=== PATIENT | male | born 1995 | race Caucasian/White ===

== ENCOUNTER 2017-08-24 08:52 | Emergency (ER) | payer OTHER ==
[~2017-08-24] VITALS: Ht 172.7 cm; Wt 64.0 kg
[2017-08-24 09:07] VITALS: BP 120/66; PULSE 67; RESP 20; TEMP 97.9; O2SAT 98
[2017-08-24 09:52] LABS: AUTOMATED NEUTROPHIL # 4.9 TH/MM3 (1.8-7.7); BASOPHIL # 0.1 TH/MM3 (0-0.2); EOSINOPHIL # 0.4 TH/MM3 (0-0.4); EOSINOPHIL % 5.6 % (0.0-4.0); HEMATOCRIT 43.1 % (39.0-51.0); HEMOGLOBIN 14.4 GM/DL (13.0-17.0); LYMPHOCYTE # 0.6 TH/MM3 (1.0-4.8); MEAN CELL VOLUME 86.5 FL (80.0-100.0); MEAN CORPUSCULAR HEMOGLOBIN 28.9 PG (27.0-34.0); MEAN CORPUSCULAR HGB CONC 33.4 % (32.0-36.0); MEAN PLATELET VOLUME 7.3 FL (7.0-11.0); MONO % 7.5 % (0.0-8.0); MONOCYTE # 0.5 TH/MM3 (0-0.9); NEUT % 76.9 % (16.0-70.0); PLATELET COUNT 346 TH/MM3 (150-450); RED BLOOD COUNT 4.98 MIL/MM3 (4.50-5.90); RED CELL DISTRIBUTION WIDTH 13.3 % (11.6-17.2); WHITE BLOOD COUNT 6.4 TH/MM3 (4.0-11.0)
[2017-08-24] MEDS ORDERED: ONDANSETRON ODT 4 MG TAB PO ONE (10:45)
--- NOTE | 2017-08-24 10:54 | PD ---
HPI Chief Complaint: Suicide Ideation/Attempt Time Seen by Provider: 09:10 Travel History International Travel<30 days: No Contact w/Intl Traveler<30days: No Traveled to known affect area: No History of Present Illness HPI 22-year-old male presents to the emergency department under Jones act. According to law enforcement report "Rommel stated he was 2 days sober from heroin. He thought about jumping in front of cars and did so at approximately 6 AM. His dad been advised him to call us." The patient admits to jumping in front of a car. He says he is ready to end it all. He reports suicidal ideation and history of suicidal ideation. Reports history of suicidal attempts. His plan is to continue to jump in front of cars. Denies homicidal ideations. Denies auditory or visual hallucinations. Reports injecting heroin 2 days ago. Denies other illicit drug use. Denies alcohol use. Reports tobacco use. Current symptoms are aggravated by "multiple things." No known relieving factors. Symptoms are moderate to severe in severity. Is complaining of withdrawal symptoms of nausea without vomiting and abdominal cramping. Denies chest pain, shortness of breath, fevers. No primary care provider. No known allergies. Denies significant past medical history. History of bipolar, PTSD, anxiety and does not take medications. Has no other medical complaints. No other modifying factors or associated signs and symptoms. PFSH Past Medical History Bipolar Disorder: Yes Depression: Yes Diminished Hearing: No Psychiatric: Yes Tetanus Vaccination: Unknown Past Surgical History Surgical History: No Previous Surgery Social History Alcohol Use: Yes Tobacco Use: Yes (/2 PPD) Substance Use: Yes (HEROIN IV 2 DAYS AGO) Allergies-Medications (Allergen,Severity, Reaction): Coded Allergies: No Known Allergies (Unverified , 08/24/17) Reported Meds & Prescriptions Reported Meds & Active Scripts Active No Active Prescriptions or Reported Medications Review of Systems Except as stated in HPI: all other systems reviewed are Neg Physical Exam Narrative GENERAL: Well-nourished, well-developed male patient, in no acute distress SKIN: Warm and dry. HEAD: Atraumatic. Normocephalic. EYES: Pupils equal and round. ENT: Mucosa pink and moist. NECK: Supple. Trachea midline. CARDIOVASCULAR: Regular rate and rhythm. No murmur appreciated. RESPIRATORY: No accessory muscle use. Clear to auscultation. Breath sounds equal bilaterally. GASTROINTESTINAL: Abdomen soft, tender all over, nondistended. Hepatic and splenic margins not palpable. Bowel sounds are active 4 quadrants. MUSCULOSKELETAL: No obvious deformities. No clubbing. No cyanosis. No edema. NEUROLOGICAL: Awake and alert. Oriented 3. No obvious cranial nerve deficits. Motor grossly within normal limits. Normal speech. Moves all extremities. 5/5 strength to all extremities. PSYCHIATRIC: No delusional thought processes. No hallucinations. Data Data Last Documented VS Vital Signs Date Time Temp Pulse Resp B/P (MAP) Pulse Ox O2 Delivery O2 Flow Rate FiO2 08/24/17 09:07 97.9 67 20 120/66 (84) 98 Orders Orders Complete Blood Count With Diff (08/24/17 09:10) Comprehensive Metabolic Panel (08/24/17 09:10) Thyroid Stimulating Hormone (08/24/17 09:10) Psych Screen (08/24/17 09:10) Drug Screen, Random Urine (08/24/17 09:10) Alcohol (Ethanol) (08/24/17 09:10) Salicylates (Aspirin) (08/24/17 09:10) Tylenol (Acetaminophen) (08/24/17 09:10) Ondansetron Odt (Zofran Odt) (08/24/17 10:45) Clonidine (Catapres) (08/24/17 11:00) Labs Laboratory Tests Test 08/24/17 09:30 White Blood Count 6.4 TH/MM3 Red Blood Count 4.98 MIL/MM3 Hemoglobin 14.4 GM/DL Hematocrit 43.1 % Mean Corpuscular Volume 86.5 FL Mean Corpuscular Hemoglobin 28.9 PG Mean Corpuscular Hemoglobin Concent 33.4 % Red Cell Distribution Width 13.3 % Platelet Count 346 TH/MM3 Mean Platelet Volume 7.3 FL Neutrophils (%) (Auto) 76.9 % Lymphocytes (%) (Auto) 9.0 % Monocytes (%) (Auto) 7.5 % Eosinophils (%) (Auto) 5.6 % Basophils (%) (Auto) 1.0 % Neutrophils # (Auto) 4.9 TH/MM3 Lymphocytes # (Auto) 0.6 TH/MM3 Monocytes # (Auto) 0.5 TH/MM3 Eosinophils # (Auto) 0.4 TH/MM3 Basophils # (Auto) 0.1 TH/MM3 CBC Comment DIFF FINAL Differential Comment Blood Urea Nitrogen 10 MG/DL Creatinine 0.75 MG/DL Random Glucose 90 MG/DL Total Protein 7.4 GM/DL Albumin 3.5 GM/DL Calcium Level 8.8 MG/DL Alkaline Phosphatase 90 U/L Aspartate Amino Transf (AST/SGOT) 25 U/L Alanine Aminotransferase (ALT/SGPT) 34 U/L Total Bilirubin 0.5 MG/DL Sodium Level 136 MEQ/L Potassium Level 3.9 MEQ/L Chloride Level 104 MEQ/L Carbon Dioxide Level 24.7 MEQ/L Anion Gap 7 MEQ/L Estimat Glomerular Filtration Rate 129 ML/MIN Thyroid Stimulating Hormone 3rd Gen 0.257 uIU/ML Salicylates Level 2.6 MG/DL Acetaminophen Level LESS THAN 2.0 MCG/ML Ethyl Alcohol Level LESS THAN 3 MG/DL MDM Medical Decision Making Medical Screen Exam Complete: Yes Emergency Medical Condition: Yes Medical Record Reviewed: Yes Differential Diagnosis Opiate abuse, suicidal ideation, suicidal threat, suicidal attempt, opioid withdrawal, medical clearance for psychiatric admission Narrative Course Patient presents under a Jones act. Physical examination and vital signs are essentially unremarkable. Patient has no medical complaints to report. Psych screen has been ordered. If the laboratory results are unremarkable, the patient will be medically cleared for psychiatric evaluation and disposition. Patient reports symptoms of withdrawal. Patient reports nausea and abdominal cramping. Zofran ordered. I discussed the patient with Dr. Pardo, my attending physician and she recommends clonidine 0.1 mg. Clonidine ordered. Blood pressure will be monitored. Diagnosis Primary Impression: Medical clearance for psychiatric admission Additional Impression: Opioid withdrawal Scripts No Active Prescriptions or Reported Meds Condition: Stable Theresa Walls [facility] Aug 24, 2017 10:54
[2017-08-24 11:00] LABS: ALBUMIN 3.5 GM/DL (3.4-5.0); ALKALINE PHOSPHATASE 90 U/L (45-117); ALT (GPT) 34 U/L (12-78); AST (GOT) 25 U/L (15-37); BICARBONATE 24.7 MEQ/L (21.0-32.0); BLOOD UREA NITROGEN 10 MG/DL (7-18); CALCIUM 8.8 MG/DL (8.5-10.1); CHLORIDE 104 MEQ/L (98-107); CREATININE 0.75 MG/DL (0.60-1.30); GLOMERULAR FILTRATION RATE 129 ML/MIN (>89); GLUCOSE,RANDOM 90 MG/DL (74-106); SODIUM (NA) 136 MEQ/L (136-145); TOTAL BILIRUBIN ADULT 0.5 MG/DL (0.2-1.0); TOTAL PROTEIN 7.4 GM/DL (6.4-8.2)
[2017-08-24] MEDS ORDERED: cloNIDine HCL 0.1 MG TAB PO ONE (11:00)
[2017-08-24 11:01] LABS: ACETAMINOPHEN LESS THAN 2.0 MCG/ML (10.0-30.0)
[2017-08-24 12:06] VITALS: BP 110/68; PULSE 68; RESP 17; O2SAT 98
[2017-08-24 17:00] VITALS: BP 108/67
[2017-08-24 18:05] VITALS: BP 111/54; PULSE 74; RESP 20; TEMP 99; O2SAT 99
[2017-08-24] MEDS ORDERED: SERO50TA PO (21:02)
[2017-08-24] MEDS ORDERED: SERO100T PO (21:02)
[2017-08-24] MEDS ORDERED: QUEtiapine FUMARATE 100 MG TAB PO ONE (21:45)
[2017-08-24 21:46] VITALS: BP 109/55; PULSE 74; RESP 18; TEMP 98.4; O2SAT 98
[2017-08-25 02:15] VITALS: BP 119/58; PULSE 84; RESP 17; TEMP 99.2; O2SAT 97
[2017-08-25 06:35] VITALS: BP 95/51; PULSE 66; RESP 18; TEMP 99.2; O2SAT 99
--- NOTE | 2017-08-25 10:30 | PD ---
Data Data Last Documented VS Vital Signs Date Time Temp Pulse Resp B/P (MAP) Pulse Ox O2 Delivery O2 Flow Rate FiO2 08/25/17 10:36 08/25/17 06:35 99.2 66 18 99 Room Air Orders Orders Complete Blood Count With Diff (08/24/17 09:10) Comprehensive Metabolic Panel (08/24/17 09:10) Thyroid Stimulating Hormone (08/24/17 09:10) Psych Screen (08/24/17 09:10) Drug Screen, Random Urine (08/24/17 09:10) Alcohol (Ethanol) (08/24/17 09:10) Salicylates (Aspirin) (08/24/17 09:10) Tylenol (Acetaminophen) (08/24/17 09:10) Ondansetron Odt (Zofran Odt) (08/24/17 10:45) Clonidine (Catapres) (08/24/17 11:00) Diet Regular Basic (08/24/17 Dinner) Quetiapine (Seroquel) (08/24/17 21:45) Diet Regular Basic (08/25/17 Breakfast) Ed Discharge Order (08/25/17 10:30) Labs Laboratory Tests Test 08/24/17 09:30 08/24/17 12:40 White Blood Count 6.4 TH/MM3 Red Blood Count 4.98 MIL/MM3 Hemoglobin 14.4 GM/DL Hematocrit 43.1 % Mean Corpuscular Volume 86.5 FL Mean Corpuscular Hemoglobin 28.9 PG Mean Corpuscular Hemoglobin Concent 33.4 % Red Cell Distribution Width 13.3 % Platelet Count 346 TH/MM3 Mean Platelet Volume 7.3 FL Neutrophils (%) (Auto) 76.9 % Lymphocytes (%) (Auto) 9.0 % Monocytes (%) (Auto) 7.5 % Eosinophils (%) (Auto) 5.6 % Basophils (%) (Auto) 1.0 % Neutrophils # (Auto) 4.9 TH/MM3 Lymphocytes # (Auto) 0.6 TH/MM3 Monocytes # (Auto) 0.5 TH/MM3 Eosinophils # (Auto) 0.4 TH/MM3 Basophils # (Auto) 0.1 TH/MM3 CBC Comment DIFF FINAL Differential Comment Blood Urea Nitrogen 10 MG/DL Creatinine 0.75 MG/DL Random Glucose 90 MG/DL Total Protein 7.4 GM/DL Albumin 3.5 GM/DL Calcium Level 8.8 MG/DL Alkaline Phosphatase 90 U/L Aspartate Amino Transf (AST/SGOT) 25 U/L Alanine Aminotransferase (ALT/SGPT) 34 U/L Total Bilirubin 0.5 MG/DL Sodium Level 136 MEQ/L Potassium Level 3.9 MEQ/L Chloride Level 104 MEQ/L Carbon Dioxide Level 24.7 MEQ/L Anion Gap 7 MEQ/L Estimat Glomerular Filtration Rate 129 ML/MIN Thyroid Stimulating Hormone 3rd Gen 0.257 uIU/ML Salicylates Level 2.6 MG/DL Acetaminophen Level LESS THAN 2.0 MCG/ML Ethyl Alcohol Level LESS THAN 3 MG/DL Urine Opiates Screen POS Urine Barbiturates Screen NEG Urine Amphetamines Screen NEG Urine Benzodiazepines Screen NEG Urine Cocaine Screen NEG Urine Cannabinoids Screen NEG MDM Supervised Visit with SANDY: Yes Narrative Course Patient seen and examined by me after was seen by Debby PETERSON for the psychiatric team, she believes that the patient is not a threat to himself or to others. On my examination the patient states "I have to be honest with you my father told me that when I got down here I could always make of some story about being suicidal slight have a place to stay." Patient adamantly denies any suicidal homicidal ideation, he states he just came to the area from [place] because he wants to get sober, he states he has made some arrangements in a alf house that he wants to go stay in. He is future oriented I do not perceive him to be a threat to himself or others at this time , is calm and cooperative and has no medical complaints. He is stable for discharge. I have lifted his Jones act as he is an appropriate for this status at this time. Referred to [facility] outpatient. He is stable for discharge Diagnosis Primary Impression: Substance abuse Referrals: [facility] Disposition: 01 DISCHARGE HOME Condition: Stable Philip Fontenot MD Aug 25, 2017 10:30
--- NOTE | 2017-08-25 10:33 | PD ---
History of Present Illness Chief Complaint: Other psychoactive substance dependence, uncomplicated Travel History International Travel<30 Days: No Contact w/Intl Traveler<30days: No Known affected area: No Legal Status Legal Status: Jones Act Jones Act Signed By: Juanito Rojas History of Present Illness: This is a 22-year-old single, male who presents under Jones act from [employer] for self-reported suicidal ideations. Per the Jones act, patient complained that he had jumped in front of a car at approximately 6 AM. Reviewed electronic medical records, labs, discuss case with staff. Patient's toxicology screen is positive for opiates which correlates with patient's story that he used heroin 2 days ago. Patient was examined in his room and J pod. He is alert and oriented 4. His speech is clear, logical, and organized. There is no evidence of internal stimulation. He is neatly groomed and clean. His mood is good and his affect is euthymic. He advises he currently has been "staying with different people". He interacts appropriately throughout the evaluation. Patient reports that he "told the lead architect something just to get a bed ". He relates that he "made the whole story up". Patient advises that he had been living in a sober living home and was recently kicked out due to his drug use. He reports a long history of being in and out of detoxes on sober living facilities. He denies suicidal ideation, homicidal ideation, visual or auditory hallucinations. I can elicit no delusional material at this time. He denies ever having previous suicidal attempts. Reports that he had inpatient stays at mental health facilities when he was much younger. But states, "drugs are my problem". He relates that he has had numerous inpatient admissions to detox facilities. PFSH Past Medical History Bipolar Disorder: Yes Depression: Yes Diminished Hearing: No Psychiatric: Yes Tetanus Vaccination: Unknown Past Surgical History Surgical History: No Previous Surgery Psychiatric History Psychiatric History Patient reports mental health inpatient admissions at a young age but relates that they were mostly due to drug problems. He does report numerous inpatient admissions for detox and rehab. Hx Psychiatric Treatment: REPORTS HX OF PTSD FROM CHILDHOOD ABUSE. BIPOLAR. LAST ADMISSION WAS TO [facility] 1 YR AGO History of Inpatient Treatment: Yes Social History Hx Alcohol Use: Yes Hx Tobacco Use: Yes (05/27 PPD) Hx Substance Use: Yes Substance Use Type: Heroin Hx of Substance Use Treatment: Yes Family Psychiatric History Patient states that he no longer maintains contact with his father. He states that they "used to do drugs together". Allergies-Medications (Allergen,Severity, Reaction): Coded Allergies: No Known Allergies (Unverified , 08/24/17) Reported Meds & Prescriptions Reported Meds & Active Scripts Active Reported Seroquel (Quetiapine Fumarate) 100 Mg Tab 100 Mg PO HS Seroquel (Quetiapine Fumarate) 50 Mg Tab 50 Mg PO DAILY Mental Status Examination Appearance: Appropriate, Well dressed/well groomed Consciousness: Alert Orientation: x4 Motor Activity: Normal gait Speech: Unremarkable Language: Adequate Fund of Knowledge: Adequate Attention and Concentration: Adequate Memory: Unremarkable Mood: Appropriate, Good Affect: Appropriate, Euthymic Thought Process & Associations: Intact, Logical Thought Content: Appropriate Hallucination Type: None Delusion Type: None Suicidal Ideation: No Suicidal Plan: No Suicidal Intention: No Homicidal Ideation: No Homicidal Plan: No Homicidal Intention: No Insight: Fair Judgment: Impulsive MDM Medical Decision Making Medical Record Reviewed: Yes Assessment/Plan This is a 22-year-old single, male who presents under Jones act for self-reported attempted suicide. Upon evaluation this morning patient is awake , alert, and oriented 4. His speech is clear, logical, and organized. There is no evidence of internal stimulation and I can elicit no delusional material. He denies feeling suicidal, homicidal, or experiencing visual or auditory hallucinations. He reports that he "said something stupid so that I could get a bad". He relays that 2 days ago he used heroin and was kicked out of his sober living house. Patient is future oriented discussing which detox facilities he will attempt to get back into. He no longer meets Jones act criteria nor does he meet inpatient admission criteria. I presented this patient to Dr. Fontenot who also assessed the patient. He agrees with my assessment and has lifted the Jones act. Patient will be discharged with the address and phone number for [facility] outpatient detox services. He will be advised to return should his condition worsen. Orders Orders Ondansetron Odt (Zofran Odt) (08/24/17 10:45) Clonidine (Catapres) (08/24/17 11:00) Diet Regular Basic (08/24/17 Dinner) Quetiapine (Seroquel) (08/24/17 21:45) Diet Regular Basic (08/25/17 Breakfast) Diet Regular Basic (08/25/17 Lunch) Results Vital Signs Date Time Temp Pulse Resp B/P (MAP) Pulse Ox O2 Delivery O2 Flow Rate FiO2 08/25/17 06:35 99.2 66 18 95/51 (66) 99 Room Air 08/25/17 02:15 99.2 84 17 119/58 (78) 97 Room Air 08/24/17 21:46 98.4 74 18 109/55 (73) 98 Room Air 08/24/17 18:05 99.0 74 20 111/54 (73) 99 Room Air 08/24/17 17:00 65 19 108/67 (81) 98 08/24/17 12:06 68 17 110/68 (82) 98 Room Air Laboratory Tests Test 08/24/17 12:40 Urine Opiates Screen POS Urine Barbiturates Screen NEG Urine Amphetamines Screen NEG Urine Benzodiazepines Screen NEG Urine Cocaine Screen NEG Urine Cannabinoids Screen NEG Diagnosis Primary Impression: Other psychoactive substance dependence, uncomplicated Psychiatrically Cleared: Yes Condition: Stable Debby Aiken Aug 25, 2017 10:33
== END 2017-08-25 11:01 | disposition home or self-care (01) ==
LOC: NEPD 08:52 → NEPJ 08-25 11:01
DX: F11.23 Opioid dependence with withdrawal (principal); F31.9 Bipolar disorder, unspecified; F43.10 Post-traumatic stress disorder, unspecified; F41.9 Anxiety disorder, unspecified; F17.200 Nicotine dependence, unspecified, uncomplicated
CPT/HCPCS: 80053; 80307; 84443; 85025; 99284